=== PATIENT | female | born 1960 | race Caucasian/White ===

== ENCOUNTER → 2018-06-23 | Outpatient (REF) | payer OTHER | LOC: M LAB REF 12:18 | DX: N63.0 Unspecified lump in unspecified breast (principal) ==

== ENCOUNTER → 2020-01-07 | Outpatient (REF) | payer OTHER ==
[~2020-01-07] MED LIST: MULTIVIT PO; VIT D 2000 PO
== END ==
LOC: M LAB REF 13:01
PROVIDERS: ATTEND Nurse Practitioner Family
DX: L03.818 Cellulitis of other sites (principal)

== ENCOUNTER → 2020-02-09 | Outpatient (REF) | payer OTHER | LOC: M LAB REF 12:11 | PROVIDERS: ATTEND Internal Medicine | DX: M25.512 Pain in left shoulder (principal) ==

== ENCOUNTER 2021-01-17 18:00 | Emergency (ER) | payer OTHER ==
[~2021-01-17] VITALS: Ht 165.1 cm; Wt 90.5 kg
[2021-01-17] MEDS ORDERED: IBUP-1114 PO (18:10)
[2021-01-17] MEDS ORDERED: ROSU10TA6 (18:10)
[2021-01-17] MEDS ORDERED: LISI10TA22 (18:10)
[2021-01-17] MEDS ORDERED: ONDANSETRON 4MG/2ML VIAL IV ONE (18:45)
[2021-01-17] MEDS ORDERED: NS 1,000 ML IV ONE ×2 (18:45→21:10)
[2021-01-17] MEDS ORDERED: ACETAMINOPHEN 325 MG TAB PO ONE (19:50)
[2021-01-17 19:54] LABS: BASO % 0.3 % (0.0-1.0); EOS % 0.4 % (0.0-3.0); HEMATOCRIT 40.3 % (36.0-47.0); HEMOGLOBIN 13.5 g/dl (12.0-15.5); LYMPH # 0.5 10^3/uL (1.5-5.0); LYMPH % 4.8 % (24.0-44.0); MEAN CORPUSCULAR HEMOGLOBIN 30.4 pg (27.0-33.0); MEAN CORPUSCULAR HGB CONC 33.5 g/dl (32.0-36.5); MEAN CORPUSCULAR VOLUME 90.8 fl (80.0-96.0); MONO # 0.6 10^3/uL (0.0-0.8); MONO % 6.4 % (2.0-8.0); NEUTROPHILS # 8.6 10^3/uL (1.5-8.5); NEUTROPHILS % 87.6 % (36.0-66.0); PLATELET COUNT, AUTOMATED 220 10^3/uL (150-450); RED BLOOD COUNT 4.44 10^6/uL (4.00-5.40); WHITE BLOOD COUNT 9.9 10^3/uL (4.0-10.0)
[2021-01-17] MEDS ORDERED: ISOVUE-370 76% 100ML VIAL As Ordered ONE (20:09)
--- NOTE | 2021-01-17 20:13 | ECGEPIP ---
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
[2021-01-17 20:29] LABS: ERYTHROCYTE SEDIMENTATION RATE 34 mm/hr (0-30)
[2021-01-17 20:31] LABS: ALT/SGPT 26 U/L (12-78); BILIRUBIN,DIRECT 0.2 MG/DL (0.0-0.2); BILIRUBIN,TOTAL 0.5 MG/DL (0.2-1.0); CK-MB VALUE MASS < 1.0 NG/ML (<3.6); CPK CREATINE PHOSPHOKINASE 67 U/L (26-192); FREE T4 0.82 NG/DL (0.76-1.46); MB/CK RELATIVE INDEX 1.49 (< OR =4); NT-PRO BNP 46 PG/ML (<125); TOTAL PROTEIN 7.2 GM/DL (6.4-8.2); TROPONIN I < 0.02 NG/ML (< 0.10)
--- NOTE | 2021-01-17 20:53 | REPVR ---
PROCEDURE INFORMATION: Exam: CT Angiography Chest With Contrast Exam date and time: 01/17/2021 8:15 PM Age: 60 years old Clinical indication: Tachypnea; Additional info: Palpitations/tachycardia R/O pe TECHNIQUE: Imaging protocol: Computed tomographic angiography of the chest with contrast. 3D rendering (Not supervised by radiologist): MIP and/or 3D reconstructed images were created by the technologist. Radiation optimization: All CT scans at this facility use at least one of these dose optimization techniques: automated exposure control; mA and/or kV adjustment per patient size (includes targeted exams where dose is matched to clinical indication); or iterative reconstruction. Contrast material: ISOVUE 370; Contrast volume: 75 ml; Contrast route: INTRAVENOUS (IV); COMPARISON: No relevant prior studies available. FINDINGS: Pulmonary arteries: The main pulmonary artery measures 24 mm. No pulmonary embolism is identified. Aorta: The ascending thoracic aorta measures 32 mm. Lungs: Minimal bibasilar fibro-atelectatic change. Pleural spaces: Unremarkable. No pneumothorax. No pleural effusion. Heart: Unremarkable. No cardiomegaly. No pericardial effusion. Lymph nodes: Unremarkable. No enlarged lymph nodes. Liver: Probable small hepatic cyst in the dome measuring 6 mm. Gallbladder and bile ducts: The gallbladder is contracted with no stones. Bones/joints: Unremarkable. No acute fracture. Soft tissues: Unremarkable. IMPRESSION: 1. Minimal bibasilar fibro-atelectatic change. 2. Otherwise negative CTA chest. No pulmonary embolism is identified. Electronically signed by: David Camarillo On 01/17/2021 20:53:44 PM
[2021-01-17] MEDS ORDERED: diphenhydrAMINE 50MG/ML VIAL (J1200) IV STA (21:34)
[2021-01-17] MEDS ORDERED: METOCLOPRAMIDE INJ 10MG/2ML VIAL (J2765 PER 1) IV ONE (21:35)
[2021-01-17] MEDS ORDERED: KETOROLAC 30 MG/ML 1ML VIAL IV ONE (21:35)
[2021-01-17 22:34] VITALS: BP 160/72
[2021-01-17] MEDS ORDERED: AUGM875T28 PO (23:07)
[2021-01-17] MEDS ORDERED: ONDA4TAB6 PO (23:07)
[2021-01-17] MEDS ORDERED: AUGMENTIN 875 MG TAB PO ONE (23:10)
== END 2021-01-17 23:26 | disposition home or self-care (01) ==
LOC: M ED 18:00
DX: R50.9 Fever, unspecified (principal); R11.2 Nausea with vomiting, unspecified; T50.Z95A Adverse effect of other vaccines and biological substances, initial encounter; X58.XXXA Exposure to other specified factors, initial encounter; Y92.89 Other specified places as the place of occurrence of the external cause; N61.0 Mastitis without abscess; I89.1 Lymphangitis; I10 Essential (primary) hypertension; E78.5 Hyperlipidemia, unspecified; E66.9 Obesity, unspecified; Z79.899 Other long term (current) drug therapy
CPT/HCPCS: 71275; 80047; 80076; 81001; 82550; 82553; 83880; 84439; 84443; 84484; 85025; 85652; 86140; 87798; 93005; 96361; 96374; 96375; 99284; J1200; J1885; J2405; J2765; Q9967

== ENCOUNTER → 2021-12-27 | Outpatient (CLI) | payer OTHER ==
[~2021-12-27] MED LIST changes: +AUGM875T28 PO; +D31000TA2 PO; +IBUP-1114 PO; +LISI10TA22; +ONDA4TAB6 PO; +ROSU10TA6; +THERTAB52 PO
== END ==
LOC: M LABSMTC 09:27
PROVIDERS: ATTEND Anesthesiology
DX: Z01.818 Encounter for other preprocedural examination (principal); Z11.52 Encounter for screening for COVID-19

== ENCOUNTER 2022-01-01 08:05 | Day surgery (SDC) | payer OTHER ==
[~2022-01-01] VITALS: Ht 170.2 cm; Wt 86.6 kg
[~2022-01-01 08:05] MED LIST changes: -D31000TA2 PO; +LIDOCAINE 2% 100MG/5ML SDV (FOR ANES.) As Ordered ONE; +VITA100093 PO
[2022-01-01] MEDS ORDERED: fentaNYL 100 MCG/2 ML INJECTION As Ordered ONE (08:06)
[2022-01-01] MEDS ORDERED: propofoL 500 MG/50 ML VIAL As Ordered ONE (08:06)
[2022-01-01] MEDS ORDERED: NS 1,000 ML IV ONE (08:30)
[2022-01-01 09:21] VITALS: BP 129/77
== END 2022-01-01 09:23 | disposition home or self-care (01) ==
LOC: M OPP 08:05
PROVIDERS: ATTEND Internal Medicine Gastroenterology
DX: Z12.11 Encounter for screening for malignant neoplasm of colon (principal); Z86.010 Personal history of colon polyps; D12.6 Benign neoplasm of colon, unspecified; K64.0 First degree hemorrhoids; Z79.899 Other long term (current) drug therapy; Z91.013 Allergy to seafood; Z87.891 Personal history of nicotine dependence

== ENCOUNTER → 2022-01-03 | Outpatient (CLI) | payer OTHER ==
[~2022-01-03] MED LIST changes: -LIDOCAINE 2% 100MG/5ML SDV (FOR ANES.) As Ordered ONE
== END ==
LOC: M WHC 07:39
PROVIDERS: ATTEND Registered Nurse
DX: Z12.31 Encounter for screening mammogram for malignant neoplasm of breast (principal)

== ENCOUNTER → 2023-01-10 | Outpatient (CLI) | payer BC | LOC: M WHC 08:24 | PROVIDERS: ATTEND Registered Nurse | DX: Z12.31 Encounter for screening mammogram for malignant neoplasm of breast (principal) ==

== ENCOUNTER → 2023-07-23 | Outpatient (CLI) | payer BC | LOC: M CARPUL 09:57 | PROVIDERS: ATTEND Internal Medicine | DX: R01.1 Cardiac murmur, unspecified (principal); I08.3 Combined rheumatic disorders of mitral, aortic and tricuspid valves ==

== ENCOUNTER → 2024-02-06 | Outpatient (CLI) | payer BC | LOC: M WHC 12:34 | PROVIDERS: ATTEND Internal Medicine | DX: Z12.31 Encounter for screening mammogram for malignant neoplasm of breast (principal) ==

== ENCOUNTER → 2024-02-27 | Outpatient (CLI) | payer BC | LOC: M WHC 09:42 | PROVIDERS: ATTEND Internal Medicine | DX: R92.8 Other abnormal and inconclusive findings on diagnostic imaging of breast (principal); R92.321 Mammographic fibroglandular density, right breast; N63.10 Unspecified lump in the right breast, unspecified quadrant | CPT/HCPCS: 76642; 77065; G0279 ==

== ENCOUNTER → 2024-04-16 | Outpatient (CLI) | payer BC ==
[~2024-04-16] MED LIST changes: +ONDA-282 PO; -ONDA4TAB6 PO; -ROSU10TA6; +ROSU10TA61
[2024-04-16 14:03] VITALS: BP 168/92; TEMP 98.8; O2SAT 95
== END ==
LOC: M WHCPRO 12:20
PROVIDERS: ATTEND Internal Medicine
DX: R92.2 Inconclusive mammogram (principal); N63.10 Unspecified lump in the right breast, unspecified quadrant